=== PATIENT | male | born 1960 | race Caucasian/White ===

== ENCOUNTER 2024-07-28 07:27 | Day surgery (SDC) | payer BC ==
[2024-07-21] MEDS: OFLOXACIN 0.3 % (OCUFLOX) OPTH SOL 5ML OD ONE (08:00)
[2024-07-21] MEDS: LIDOCAINE 3.5 % 1ML OPHTH TOPICAL GEL OU ONE (08:00)
[~2024-07-28] VITALS: Ht 167.6 cm; Wt 98.2 kg
[~2024-07-28 07:27] MED LIST: ALBU8.5H INH; AMLO1TAB25 PO; ASPI-226 PO; CYCLOPENTOLATE 1% OPHTH SOLN 2ML BTL OD SCH; LIDOCAINE 2% 100MG/5ML SDV (FOR ANES.) As Ordered ONE; LIDOCAINE 3.5 % 1ML OPHTH TOPICAL GEL OU ONE; LISI40TA4 PO; MIDAZOLAM INJ 2MG/2ML VIAL As Ordered ONE; OFLOXACIN 0.3 % (OCUFLOX) OPTH SOL 5ML OD ONE; PHENYLEPHRINE 10% OPHTH SOL 5ML OD PRN; PHENYLEPHRINE 2.5% OPHTH SOL 2ML OD SCH; PRAV40TA2 PO; SPIR12.9 INH; TROPICAMIDE 1% OPHTH SOLN 15ML OD SCH; fentaNYL 100 MCG/2 ML INJECTION As Ordered ONE; propofoL 200 MG/20 ML VIAL As Ordered ONE
[2024-07-28] MEDS: LIDOCAINE 1% SDV 5ML VIAL As Ordered ONE (09:05)
[2024-07-28] MEDS: BSS IRRIG/VANCO(10MG)/TOBRA(5MG)/EPINEPH(1:1000-0.5CC)500ML BAG-ORONLY As Ordered ONE (09:06)
[2024-07-28] MEDS: CEFUROXIME 1MG/0.1ML INTRACAMERAL INJ As Ordered ONE (09:06)
[2024-07-28 09:23] VITALS: BP 144/80; TEMP 97.2; O2SAT 99
[2024-07-28] MEDS: TROPICAMIDE 1% OPHTH SOLN 15ML OD SCH (09:28)
[2024-07-28] MEDS: PHENYLEPHRINE 2.5% OPHTH SOL 2ML OD SCH (09:28)
[2024-07-28] MEDS: CYCLOPENTOLATE 1% OPHTH SOLN 2ML BTL OD SCH (09:28)
== END 2024-07-28 09:38 | disposition home or self-care (01) ==
LOC: M SDC 07:27
PROVIDERS: ATTEND Ophthalmology
DX: H25.11 Age-related nuclear cataract, right eye (principal); I10 Essential (primary) hypertension; J44.9 Chronic obstructive pulmonary disease, unspecified; Z79.899 Other long term (current) drug therapy; F17.210 Nicotine dependence, cigarettes, uncomplicated
CPT/HCPCS: 66984; 92015; J0697; J2250; J3010; V2632